=== PATIENT | male | born 1950 | race Caucasian/White ===

== ENCOUNTER 2019-08-26 13:19 | Emergency (ER) | payer MEDICARE, OTHER ==
--- NOTE | 2019-08-26 14:05 | EDM.PDOC ---
ED HPI GENERAL MEDICAL PROBLEM - General Chief Complaint: Neurological Problem Stated Complaint: DIZZY SPELLS Time Seen by Provider: 08/26/19 13:55 Source of Information: Reports: Patient History Limitations: Reports: No Limitations - History of Present Illness INITIAL COMMENTS - FREE TEXT/NARRATIVE: 69-year-old male attends the ED after being referred from the walk-in clinic at [facility]. 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 His and daughter were accompanying him. They stopped in [place] and as he was getting out of the vehicle he felt very off balance and he had to be aided by both his and daughter to keep him from falling. This seemed to be very transient and then he was able to walk. He states he did feel mildly off balance but he never developed a headache. Perhaps mild nausea but no vomiting. Patient is receiving radiation treatments high-dose radiation to his prostate gland since 30 July. This is created radiation induced diarrhea usually 3 or 4 times per day without blood loss. On firm questioning he felt just weak like his legs would not hold him up. He will not comment that he had any DM vision to suggest pseudocyst suggest orthostasis as a cause of his dizziness. However he is drank only half of a diet soda pop on the way here and had a banana for breakfast. He is therefore likely volume depleted. He has a good chance of being potassium depleted magnesium depleted due to chronic diarrhea. He is also a type II diabetic and does not check his sugars because he does not have the right equipment. He is currently being treated by diet. Onset: Today, Sudden Onset Date: 08/26/19 Onset Time: 13:05 Duration: Minutes: Location: Reports: Generalized (Generalized sense of weakness with a sense of being off balance without any fall. Symptoms have now abated with no further feeling of being off balance or dizzy.) Quality: Reports: Other Severity: Moderate (Dizziness and weakness in his lower extremities) Improves with: Reports: Other (Symptoms have improved spontaneously.) Worsens with: Reports: None Context: Denies: Activity, Exercise, Lifting, Sick Contact, Trauma, Other Associated Symptoms: Reports: Malaise, Weakness, Other (Chronic diarrhea due to radiation to his prostate since July 30.). Denies: No Other Symptoms, Confusion, Chest Pain, Cough, cough w sputum, Diaphoresis, Fever/Chills, Headaches, Loss of Appetite, Nausea/Vomiting, Rash, Seizure, Shortness of Breath, Syncope Treatments [employer]CH[employer]ICIAN: Reports: Other (see below) (None.) - Related Data Allergies Allergy/AdvReac Type Severity Reaction Status Date / Time Penicillins Allergy Severe Cannot Verified 08/26/19 13:35 Remember Sulfa (Sulfonamide Allergy Severe Cannot Verified 08/26/19 13:35 Antibiotics) Remember contrast dye Allergy Severe Cannot Uncoded 08/26/19 13:35 Remember Home Meds: Home Meds Magnesium Chloride [Slow-Mag] 71.5 mg PO BID #60 tablet. 08/26/19 [Rx] Past Medical History Cardiovascular History: Reports: Hypertension Genitourinary History: Reports: Prostate Disorder (And is recently diagnosed with prostate cancer. Treated with cesium seed implant on July 30 and has been saving receiving hard beam radiation treatments to his prostate since mid July.) Endocrine/Metabolic History: Reports: Diabetes, Type II (Currently treated by diet.), Obesity/BMI 30+ - Past Surgical History HEENT Surgical History: Reports: Other (See Below) Other HEENT Surgeries/Procedures: surgery on ear drum Musculoskeletal Surgical History: Reports: Other (See Below) Other Musculoskeletal Surgeries/Procedures:: back, wrist, and foot surgeries Social & Family History - Tobacco Use Smoking Status *Q: Former Smoker Used Tobacco, but Quit: Yes Month/Year Tobacco Last Used: 14 years - Caffeine Use Caffeine Use: Reports: None - Recreational Drug Use Recreational Drug Use: No - Living Situation & Occupation Living situation: Reports: ( is accompanying him as is his daughter.) Occupation: Retired ED ROS GENERAL - Review of Systems Review Of Systems: See Below Constitutional: Reports: Malaise, Weakness, Fatigue, Decreased Appetite. Denies: Fever, Chills, Weight Loss HEENT: Reports: Glasses Respiratory: Reports: Shortness of Breath. Denies: Wheezing, Pleuritic Chest Pain, Cough, Sputum, Hemoptysis Cardiovascular: Reports: Blood Pressure Problem, Lightheadedness. Denies: Chest Pain, Claudication, Dyspnea on Exertion, Edema, Orthopnea (Is on medicine for high blood pressure), Palpitations Endocrine: Reports: Fatigue GI/Abdominal: Reports: Diarrhea (Usually 3-4 loose stools per day without blood since receiving high hard beam radiation to his prostate gland since July 30.), Decreased Appetite. Denies: Difficulty Swallowing, Distension, Flatus, Hematemesis, Hematochezia, Melena : Reports: Frequency, Urgency (Frequency and urgency are worsened since radiation treatments.) Musculoskeletal: Reports: Back Pain, Joint Pain (Knees hips neck and lower back at times) Skin: Reports: No Symptoms Neurological: Reports: Dizziness (Hard to sort out whether he was dizzy today from orthostasis or had a slight component of vertigo with transient symptoms.). Denies: Confusion, Weakness Psychiatric: Reports: No Symptoms Hematologic/Lymphatic: Reports: No Symptoms Immunologic: Reports: No Symptoms ED EXAM, NEURO - Physical Exam Exam: See Below Exam Limited By: No Limitations General Appearance: Alert, WD/WN, No Apparent Distress, Other (Temperature is 36.1 heart rate 97 and sinus respiratory to 16 BP 03/16/1975 pulse ox 92% on room air.) Eye Exam: Bilateral Eye: Normal Inspection, Nystagmus (Patient has no nystagmus on lateral gaze on either side.), PERRL Ears: Other (She has had eardrum surgery on the right side x2. He wears bilateral hearing aids. No signs of active infection.) Throat/Mouth: Normal Inspection, Normal Lips, Normal Oropharynx, Other (Tongue is mildly dry and coated) Head Exam: Atraumatic, Normocephalic, Other Neck: Normal Inspection (No outward signs of fall or injuries), Full Range of Motion, Limited Range of Motion. No: Lymphadenopathy (L), Lymphadenopathy (R) Respiratory/Chest: No Respiratory Distress, No Accessory Muscle Use, Decreased Breath Sounds, Wheezing (Decreased breath sounds to the lower posterior lung knott by 30%.). No: Lungs Clear, Normal Breath Sounds, Chest Non-Tender Cardiovascular: Regular Rate, Rhythm, No Edema, No Gallop, No Murmur, No Rub. No: Normal Peripheral Pulses GI/Abdominal: Normal Bowel Sounds, Soft, Non-Tender, No Organomegaly, No Abnormal Bruit, No Mass, Pelvis Stable, Other (Abdominal girth limits ability to palpate solid organs. No surgical scars appreciated.) Neurological: Alert, Normal Mood/Affect, Normal Dorsiflexion, CN II-XII Intact, Normal Gait, Normal Reflexes, No Motor/Sensory Deficits, Oriented x 3 DTR: 0: Achilles (R), Achilles (L), 1+: Patella (R), Patella (L), 2+: Bicep (R), Bicep (L) Extremities: Normal Inspection, Normal Range of Motion, Non-Tender, No Pedal Edema Psychiatric: Normal Affect, Normal Mood Skin Exam: Warm, Dry, Intact, Normal Color, No Rash EKG INTERPRETATION EKG Date: 08/26/19 Time: 14:23 Rhythm: NSR Rate (Beats/Min): 89 [place]: LAD-Left York Deviation (1 is 71 degrees.) P-Wave: Present (T waves are inverted in leads V1 and V2. It appears to be sinus rhythm without any atrial ectopic rhythm.) QRS: Other (Left anterior fascicular block pattern decreased voltage in limb and precordial leads.) ST-T: Other (Poor R wave progression V3 to V6. Consider old anteroseptal myocardial infarction. There are Q waves in leads II, III and aVF consider old inferior wall myocardial infarction.) QT: Normal EKG Interpretation Comments: Abnormal ECG. Course - Vital Signs Last Recorded V/S: Last Vital Signs Temp 36.1 C 08/26/19 13:30 Pulse 97 08/26/19 13:30 Resp 16 08/26/19 13:30 BP 131/76 08/26/19 13:30 Pulse Ox 92 L 08/26/19 13:30 Orthostatic Blood Pressure [ 137/76 Standing] Orthostatic Blood Pressure [ 162/78 Sitting] Orthostatic Blood Pressure [ 126/67 Supine] - Orders/Labs/Meds Orders: Active Orders 24 hr Category Date Time Status Blood Glucose Check, Bedside [] ONETIME Care 08/26/19 14:11 Active EKG Documentation Completion [RC] STAT Care 08/26/19 14:20 Active Orthostatic Vital Signs [RC] ASDIRECTED Care 08/26/19 14:09 Active URINALYSIS W/MICROSCOPIC [UA W/MICROSCOPIC] [URIN] Stat Lab 08/26/19 14:10 Ordered Sodium Chloride 0.9% [Normal Saline] 1,000 ml Med 08/26/19 14:15 Active IV ASDIRECTED Medication Orders Sodium Chloride (Normal Saline) 1,000 mls @ 500 mls/hr IV ASDIRECTED [facility] Last Admin: 08/26/19 14:30 Dose: 500 mls/hr Documented by: ROB Labs: Laboratory Tests 08/26/19 08/26/1920 Range/Units 14:20 14:20 14:20 WBC 9.55 H (4.23-9.07) K/mm3 RBC 5.56 (4.63-6.08) M/mm3 Hgb 14.6 (13.7-17.5) gm/dl Hct 43.8 (40.1-51.0) % MCV 78.8 L (79.0-92.2) fl MCH 26.3 (25.7-32.2) pg MCHC 33.3 (32.2-35.5) g/dl RDW Std Deviation 38.6 (35.1-43.9) fL Plt Count 322 (163-337) K/mm3 MPV 8.4 L (9.4-12.3) fl Neut % (Auto) 61.9 (34.0-67.9) % Lymph % (Auto) 22.9 (21.8-53.1) % [place] % (Auto) 8.7 (5.3-12.2) % Eos % (Auto) 5.4 (0.8-7.0) Baso % (Auto) 0.8 (0.1-1.2) % Neut # (Auto) 5.90 H (1.78-5.38) K/mm3 Lymph # (Auto) 2.19 (1.32-3.57) K/mm3 [place] # (Auto) 0.83 H (0.30-0.82) K/mm3 Eos # (Auto) 0.52 (0.04-0.54) K/mm3 Baso # (Auto) 0.08 (0.01-0.08) K/mm3 Sodium 135 L (136-145) mEq/L Potassium 4.5 (3.5-5.1) mEq/L Chloride 100 (98-107) mEq/L Carbon Dioxide 23 (21-32) mEq/L Anion Gap 16.5 H (5-15) BUN 24 H (7-18) mg/dL Creatinine 1.6 H (0.7-1.3) mg/dL Est Cr Clr Drug Dosing 45.10 mL/min Estimated GFR (MDRD) 43 (>60) mL/min BUN/Creatinine Ratio 15.0 (14-18) Glucose 226 H (83-115) mg/dL Calcium 9.3 (8.5-10.1) mg/dL Magnesium 1.6 L (1.8-2.4) mg/dl Total Bilirubin 0.3 (0.2-1.0) mg/dL AST 26 (15-37) U/L ALT 47 (16-63) U/L Alkaline Phosphatase 121 H (46-116) U/L C-Reactive Protein 0.6 (<1.0) mg/dL NT-Pro-B Natriuret Pep 44 (0-125) pg/mL Total Protein 7.4 (6.4-8.2) g/dl Albumin 3.6 (3.4-5.0) g/dl Globulin 3.8 gm/dL Albumin/Globulin Ratio 1.0 (1-2) Meds: Medications Generic Name Dose Route Start Last Admin Trade Name Toneq PRN Reason Stop Dose Admin Sodium Chloride 1,000 mls @ 500 mls/hr 08/26/19 14:15 08/26/19 14:30 Normal Saline IV 500 mls/hr ASDIRECTED ASHLEY Administration - Radiology Interpretation Free Text/Narrative:: 69-year-old male from [place] presents to the ED at the request of the [facility] walk-in clinic. Patient states that he drove from [place] to [place]. When he got out of the vehicle he felt very unstable and off balance but I cannot get a firm history that he had dim vision and a feeling like he was going to pass out. He comments that his legs felt weak and that they would not hold him up. He was aided by his and daughter and he did not fall to the ground. I cannot get a confirmed history that any spinning or vertigo symptoms. He is a type II diabetic and apparently the clinic did not have availability to test his blood sugars. He was thus sent to the ED for further evaluation. At present he states he feels fine with no further bouts of these attacks. Patient was recently diagnosed with prostate cancer and is receiving hard beam radiation to his prostate since July 30. This is produced diarrhea usually 3 or 4 times daily without blood. He is diabetes type 2 is being treated with diet only. He does not check his sugars. At present he is a mild headache but no nausea. He does appear mildly dehydrated on exam. He had a half a soda pop this morning on route to [place] and a banana. Patient therefore could easily be volume depleted by accumulative loss of fluids or diarrhea and hypokalemic. Plan lactated Ringer's at 500 mils per hour. Routine labs to be done as well as a bedside blood sugar. Orthostatic BPs feel that he is orthostatic. Standing blood pressure is 137/76 with a heart rate of 96. Sitting is 162/78 with a heart rate of 106. Supine 126/67 with a heart rate of 86. - Re-Assessments/Exams Free Text/Narrative Re-Assessment/Exam: 08/26/19 15:46 Total white count is 9.55 with auto differential showing 62% neutrophils. Hemoglobin is 14.6 with hematocrit of 43.8. MCV slightly low at 78.8 suggesting iron deficiency. Platelet count is 322,000. Sodium 135 with a potassium of 4.5. Chloride 100 with a bicarb of 23. Anion gap is 16.5. BUN is 24 with a creatinine of 1.6. GFR is 43 a stage III chronic kidney disease. Glucose is elevated at 226 and he is a known diabetic. Calcium is 9.3 magnesium slightly low at 1.6. Liver function normal other than slightly elevated alk phosphatase at 121. C-reactive protein is 0.6. BNP is 44. Total protein is 7.4 with an albumin fraction of 3.6. It therefore appears that he likely suffered dizziness due to orthostatic hypotension and volume depletion. Mild hypomagnesemia. Possible uncontrolled type 2 diabetes with a blood sugar of 226 today which would cause volume depletion. He needs follow-up with his primary care provider in [place]. Departure - Departure Time of Disposition: 15:53 Disposition: Home, Self-Care 01 Condition: Fair Clinical Impression: Postural dizziness with near syncope, Mild dehydration Uncontrolled type 2 diabetes mellitus Qualifiers: Glycemic state: with hyperglycemia Qualified Code(s): E11.65 - Type 2 diabetes mellitus with hyperglycemia - Discharge Information *PRESCRIPTION DRUG MONITORING PROGRAM REVIEWED*: Not Applicable *COPY OF PRESCRIPTION DRUG MONITORING REPORT IN PATIENT ADRIANNE: Not Applicable Prescriptions: Magnesium Chloride [Slow-Mag] 71.5 mg PO BID #60 tablet. Instructions: Type 2 Diabetes Mellitus, Diagnosis, Adult, Near-Syncope, Dehydration, Elderly Referrals: PCP,Not In Area [Primary Care Provider] - Forms: ED Department Discharge Additional Instructions: Evaluation in the emergency room today in regards to a near syncope or collapse event that occurred after you got out of your motor vehicle after driving from [place] to [place]. Nurses occurred due to volume depletion and mild dehydration. Blood sugars were 226 suggesting blood sugars not in the best of control and steals extra fluid from your blood volume once it goes over 185. The other findings in the lab tests were mild low magnesium levels and this should be supplemented with Slow-Mag tablet 1 twice daily like a vitamin supplement. Also found that you are a little short on iron and probably picking up a Centrum vitamin complex with iron in it would be worthwhile while you were receiving radiation treatments. Suggest today to drink Powerade 0 or Gatorade 0 to maintain hydration. Follow-up with personal care physician when you get back to [place] later this week. Sepsis Event Note (ED) - Evaluation Sepsis Screening Result: No Definite Risk - Focused Exam Vital Signs: Vital Signs Temp Pulse Resp BP Pulse Ox 08/26/19 13:30 36.1 C 97 16 131/76 92 L - My Orders Last 24 Hours: My Active Orders 08/26/19 14:09 Orthostatic Vital Signs [RC] ASDIRECTED 08/26/19 14:10 URINALYSIS W/MICROSCOPIC [UA W/MICROSCOPIC] [URIN] Stat 08/26/19 14:11 Blood Glucose Check, Bedside [RC] ONETIME 08/26/19 14:15 Sodium Chloride 0.9% [Normal Saline] 1,000 ml IV ASDIRECTED 08/26/19 14:20 EKG Documentation Completion [RC] STAT - Assessment/Plan Last 24 Hours: My Active Orders 08/26/19 14:09 Orthostatic Vital Signs [RC] ASDIRECTED 08/26/19 14:10 URINALYSIS W/MICROSCOPIC [UA W/MICROSCOPIC] [URIN] Stat 08/26/19 14:11 Blood Glucose Check, Bedside [RC] ONETIME 08/26/19 14:15 Sodium Chloride 0.9% [Normal Saline] 1,000 ml IV ASDIRECTED 08/26/19 14:20 EKG Documentation Completion [RC] STAT
[2019-08-26] MEDS ORDERED: Sodium Chloride 0.9% 1,000 ML IV SCH (14:15)
[2019-08-26 16:11] LABS: HEMOGLOBIN A1C 7.4 % (4.50-6.20)
== END 2019-08-26 16:30 | disposition home or self-care (01) ==
LOC: JD.ED 13:19
DX: E86.0 Dehydration (principal); E11.65 Type 2 diabetes mellitus with hyperglycemia; I10 Essential (primary) hypertension; E66.9 Obesity, unspecified; Z68.34 Body mass index [BMI] 34.0-34.9, adult; I44.4 Left anterior fascicular block; Z87.891 Personal history of nicotine dependence; Z88.0 Allergy status to penicillin; Z88.2 Allergy status to sulfonamides; Z91.041 Radiographic dye allergy status
CPT/HCPCS: 36415; 80053; 81001; 82962; 83036; 83735; 83880; 85025; 86140; 93005; 96360; 96361; 99284; J7030; 93010